=== PATIENT | male | born 1995 | race Caucasian/White ===

== ENCOUNTER 2017-02-26 15:05 | Emergency (ER) | payer OTHER, MEDICAID ==
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
== END 2017-02-26 16:07 | disposition disaster alternative care site (69) ==
LOC: GACC 15:05
DX: S60.222A Contusion of left hand, initial encounter (principal); R07.89 Other chest pain; M54.2 Cervicalgia; M54.9 Dorsalgia, unspecified; R10.9 Unspecified abdominal pain; V89.2XXA Person injured in unspecified motor-vehicle accident, traffic, initial encounter; Y92.481 Parking lot as the place of occurrence of the external cause
CPT/HCPCS: Q9967

== ENCOUNTER → 2017-02-26 | Outpatient (CLI) | payer OTHER, MEDICAID | END | disposition disaster alternative care site (69) | LOC: GAMB 14:35 | DX: S39.92XA Unspecified injury of lower back, initial encounter (principal); M54.2 Cervicalgia; M54.9 Dorsalgia, unspecified; R11.0 Nausea; V49.9XXA Car occupant (driver) (passenger) injured in unspecified traffic accident, initial encounter | CPT/HCPCS: A0425; A0427; J2405; J3010 ==